=== PATIENT | female | born 2000 | race Caucasian/White ===

== ENCOUNTER → 2018-05-01 | Day surgery (SDC) | payer OTHER ==
--- NOTE | 2018-05-01 13:19 | RAD REPORT ---
EXAM DESCRIPTION: US - Guided FNA Non Breast - 05/01/2018 12:00 pm CLINICAL HISTORY: Thyroid nodule. FINDINGS: The risks, benefits and alternatives to the procedure were explained to the patient and informed cons ent obtained. Skin and subcutaneous tissues were anesthetized with lidocaine. Under sonographic guidance, six 25-gauge needle passes were obtained into the dominant nodule within the right lobe of the thyroid gland. Five of the six passes were obtained through the soft tissue com ponent of the nodule. A 6 pass was obtained through the cystic component in which fluid was aspirated . All of the material was given to pathology. The patient's experienced no immediate complication. IMPRESSION: Fine-needle aspiration of a dominant nodule from the right lobe of the thyroid gland.
== END ==
LOC: FNA 10:47
PROVIDERS: ATTEND Otolaryngology
PROC: 0G9H3ZX Drainage of Right Thyroid Gland Lobe, Percutaneous Approach, Diagnostic (ICD-10-PCS; principal; 2018-05-01)
PROC: BG44ZZZ Ultrasonography of Thyroid Gland (ICD-10-PCS; 2018-05-01)
DX: E04.1 Nontoxic single thyroid nodule (principal)
CPT/HCPCS: 76942; 88162

== ENCOUNTER → 2018-05-02 | Day surgery (SDC) | payer OTHER ==
--- NOTE | 2018-05-02 13:08 | RAD REPORT ---
EXAM DESCRIPTION: US - Breast Core BX w/US Guidance - 05/02/2018 11:16 am CLINICAL HISTORY: N63.41 COMPARISON: Breast ultrasound April 10 TECHNIQUE: Patient presents for ultrasound-guided biopsy of a superficial right periareolar breast m ass. Prior imaging was reviewed. Patient had no contraindicated allergy or medication history. The pr ocedure, risks and alternatives were discussed with the patient in detail. After answering all questi ons, both oral and written consent were obtained. Preliminary imaging again identified the superficia l 4 centimeter oval solid mass. Right breast was prepped and draped in the usual sterile fashion. From an inferior and lateral approa ch the skin and deeper tissues were anesthetized with 1% lidocaine. Under direct sonographic visualiz ation a 17 gauge introducer needle was advanced. The tip penetrated the solid mass. An 18 gauge needl e was passed through the introducer and a total of 3 2 centimeter long core biopsies were obtained. S onographic guidance was utilized throughout the examination. Sonographic imaging confirmed biopsy nee dle was within the substance of the mass. At the conclusion of the procedure the introducer needle was removed hemostasis was obtained at the p uncture site. Post biopsy imaging showed no hematoma. Postprocedure care and precaution instructions were given to the patient. Sterile bandage placed to the puncture site. IMPRESSION: Ultrasound-guided core biopsy was obtained of the right periareolar mass. All 3 cores we re given to pathology for evaluation.
== END ==
LOC: DS 09:48
PROVIDERS: ATTEND Surgery
PROC: 0HBT3ZX Excision of Right Breast, Percutaneous Approach, Diagnostic (ICD-10-PCS; principal; 2018-05-02)
DX: D24.1 Benign neoplasm of right breast (principal)
CPT/HCPCS: 19083; 88305

== ENCOUNTER 2020-08-08 09:09 | Day surgery (SDC) | payer BC ==
[2020-08-08] MEDS ORDERED: FENTANYL CITR 100 MCG/2 ML ONE (09:31)
[2020-08-08] MEDS ORDERED: ONDANSETRON 4 MG/2 ML VIAL ONE ×3 (09:31→13:06)
[2020-08-08] MEDS ORDERED: ROCURONIUM 50 MG/5 ML VIAL IV ONE (09:31)
[2020-08-08] MEDS ORDERED: MIDAZOLAM HCL 2 MG/2 ML INJ ONE (09:31)
[2020-08-08] MEDS ORDERED: LIDOCAINE 2% MPF 5 ML VIAL ONE (09:31)
[2020-08-08] MEDS ORDERED: propofoL 200 MG/20 ML VIAL IV ONE (09:31)
[2020-08-08] MEDS ORDERED: LIDOCAINE 1% W/EPI 1:100,000 MDV 20 ML VIAL ONE (09:38)
[2020-08-08] MEDS ORDERED: Ringers Lactate 1,000 ML IV ONE (09:40)
[2020-08-08] MEDS ORDERED: dexAMETHasone 10 MG/ML VIAL ONE (10:12)
--- NOTE | 2020-08-08 11:53 | P.BOP ---
Preoperative diagnosis: right thyroid nodule, dysphagia Postoperative diagnosis: same Primary procedure: right hemithyroidectomy Vice President Quality Improvement: THEO FRIAS Estimated blood loss: <10ml Specimen: R thyroid Findings: large, approx 4cm nodule Anesthesia: General Complications: None Drain(s): EDMUND drain Fluids & blood products: see anesthesia record Transferred to: Recovery Room Condition: Good
[2020-08-08] MEDS ORDERED: HYDROMORPHONE HCL 1 MG/ML INJ ONE (12:03)
--- NOTE | 2020-08-08 12:41 | OP ---
Date of Procedure: 08/08/2020 Surgeon: Corinne Brandt MD Operations Intelligence: Laura العراقي. Preoperative Diagnosis: Large right thyroid nodule with compressive symptoms and dysphagia. Postoperative Diagnosis: Large right thyroid nodule with compressive symptoms and dysphagia. Procedure: Right hemithyroidectomy. Indication For Procedure: Mimi presented to the [facility] with a palpable nodule a few years ago, b ut did not desire surgical intervention. Over the last several years, she has had a slow growth of t he right-sided nodule with development of compressive symptoms including dysphagia, and after conside ring the risks, benefits, and alternatives, she opted to proceed. Findings: Large well-circumscribed nodule approximately 4 cm in diameter, which dissected easily fro m surrounding tissues. Description Of Procedure: The patient was brought to the operating room. She was placed under gener al anesthesia via oral endotracheal tube. A shoulder roll was placed. The neck was extended. The n renzo was palpated and the left thyroid bed was normal consistent with preoperative ultrasound. There was a large approximately 4 cm palpable thyroid mass with some prominent pulsations of the skin and s oft tissues just inferior to the nodule. The planned incision site was injected with 5 mL of 1% lido john with epinephrine. After injection, the neck was cleaned with Betadine and draped in a sterile fashion. A 4 cm midline low collar incision was made over the prominent nodule. The skin and subcut aneous tissues were divided sharply. The Bovie electrocautery was then used to dissect through the s ubcutaneous tissues and control bleeding. The platysma was very thin and difficult to identify. Sha llow skin flaps were developed, but formal extensive subplatysmal elevation was not performed. The s trap muscles were identified and divided in the midline, and the right strap muscles were bluntly tamera vated off the thyroid nodule. Careful dissection of soft tissue attachments were carried out circumf erentially along the inferior and lateral aspect with retraction. With retraction of the soft tissue s, the superior portion of the right thyroid was grasped with a Michelle and the LigaSure was used to bluntly dissect and divide soft tissue attachments including the superior vascular pedicle. Taking c are to stay along the capsule of the thyroid, remaining soft tissue attachments were carefully dissec jayla replacing the thyroid back into the surgical bed. The isthmus was identified. A Bovie electroca utery was used to cauterize the soft tissues on the inferior aspect of the isthmus and the isthmus wa s gently elevated off the tracheal wall. The isthmus was then divided using the ligature to ensure h emostasis. The isthmus and the medial aspect of the thyroid were carefully elevated from the thyroid wall. Attention was returned to the superior aspect with retraction downward of the superior pole. The recurrent laryngeal nerve was identified near its insertion point and was carefully protected an d avoided during the final dissection and division of soft tissue attachments. The specimen was chris etta and the surgical bed was thoroughly inspected. There was no significant area of bleeding. The a joseph was irrigated and a Valsalva maneuver was performed. There was no evidence of air leak or damage to the trachea. There was no evidence of significant bleeding. The surgical bed was carefully suct ioned to avoid damage to the recurrent laryngeal nerve. A EDMUND drain was then placed with its output c oming from the right side. The drain was secured using a 3-0 nylon suture. The drain was placed int o the right thyroid bed and the strap muscles were approximated with a single Vicryl suture. The inc ision was then closed in a layered fashion using deep Vicryl suture and 4-0 Monocryl subcuticular sut ure. The lateral most aspect on the right side showed a small gap and a single interrupted suture wa s placed in this area to close the last 2 mm of the incision. Mastisol and Steri-Strips were then ap plied to the incision. The DEMUND drain was placed on suction, which appeared to hold well. The patient was then returned to care of anesthesia for awakening and extubation in the operating room, which pr oceeded without difficulty. Complications: None. Disposition: The patient will be discharged home later today in the care of her family with appropri ate wound care instructions and cautions regarding eating, swallowing, breathing, and risks or signs of neck hematoma. The patient will return to Dr. Brandt's office on Tuesday for removal of the drain . MACKENZIE/CAMILO Voice ID: [id number] Report ID: [id number]
[2020-08-08 15:53] VITALS: BP 102/64; TEMP 97.1; O2SAT 100
== END 2020-08-08 13:20 | disposition home or self-care (01) ==
LOC: PRE 09:09
PROVIDERS: ATTEND Otolaryngology
PROC: 0GBH0ZZ Excision of Right Thyroid Gland Lobe, Open Approach (ICD-10-PCS; principal; 2020-08-08 10:30)
DX: E04.1 Nontoxic single thyroid nodule (principal); Z20.828 Contact with and (suspected) exposure to other viral communicable diseases; J45.909 Unspecified asthma, uncomplicated; E66.3 Overweight; Z68.26 Body mass index [BMI] 26.0-26.9, adult; R13.10 Dysphagia, unspecified
CPT/HCPCS: 81025; 88307; 60210; U0002; J2704; J2250; J3010; J1100; J1170; J7120; J2405 ×3